=== PATIENT | male | born 1995 | race Caucasian/White ===

== ENCOUNTER 2023-08-18 19:35 | Emergency (ER) | payer BC, SELFPAY ==
[2023-08-18 19:36] VITALS: BP 116/82
--- NOTE | 2023-08-18 20:37 | ED.GENMED ---
History of Present Illness
<Gloria Banks PA-C - Last Filed: 08/19/23 00:23>
General
Chief Complaint: Flank Pain
Source: patient
Exam Limitations: none
Time Seen by Provider: 08/18/23 19:55
Nursing documentation reviewed up to this point in time: agreed with
Travel History
Have you had any contact with someone who has COVID-19?: No
Do you have any symptoms of coronavirus? Fever > 100 degrees, chills, cough, shortness of breath, sore throat, loss of taste or smell, muscle aches, or headache?: No
History of Present Illness
History of Present Illness:
Patient is a 28-year-old male with history hypertension, hyperlipidemia presenting for evaluation of acute onset left flank pain. Symptoms started acutely around 2 PM when he woke up from sleep. He describes pain as a sharp pain in his left flank
with some radiation around to his left side. He states pain is worse with movement and taking a deep breath, as well. He denies any radiation into his abdomen or down his leg.. Patient denies any testicular pain. Patient does endorse the mild
subjective fever and bodyaches. Patient denies any associated urinary symptoms, nausea, or vomiting. Patient denies any associated cough or chest pain. No recent travel or recent surgeries. Patient denies any numbness or tingling to his lower
extremities. Patient denies any bowel or bladder incontinence.
Patient states that he did have a flu infection about 1.5 weeks ago which caused shingles outbreak right mid to upper back.
Patient denies any known inciting injury.
Past History
<Gloria Banks PA-C - Last Filed: 08/19/23 00:23>
Past History
ED Past Medical History: HTN
ED Past Surgical History: None
Social History
Tobacco: Non-smoker
Alcohol: None
Drug: None
Review of Systems
<Gloria Banks PA-C - Last Filed: 08/19/23 00:23>
Review of Systems
Allergies reviewed?: Yes
All Other Systems: ROS reviewed and negative except as documented in HPI and ROS
Phy Exam
<Gloria Banks PA-C - Last Filed: 08/19/23 00:23>
Physical Exam
Physical Exam:
Vitals: Patient's vital signs are stable. Afebrile
General: Patient is well appearing, mild distress due to pain.
Skin: Warm and dry. Healing crusted linear vesicular rash on right upper back
Head: Normocephalic, atraumatic
Eyes: Sclera nonicteric. EOMs intact. No nystagmus.
Throat: Protecting airway. Uvula midline
Neck: Normal ROM, no cervical spine tenderness, no meningismus. Trachea midline
Cardiac: Regular rate and rhythm, no murmurs.
Pulm: Normal respiratory effort, no wheezes, rales, rhonchi heard on exam.
Abdomen: Abdomen soft. Mild diffuse abdominal tenderness without rebound tenderness or guarding. No CVA tenderness
Back: Mild tenderness palpation of left lateral ribs without crepitus or obvious deformity. No midline spinal tenderness. No obvious bruising, redness, rashes
Extremities: No evidence of cyanosis or edema. Good distal pulses
Neuro: AAOx3. CN II-XII intact. No focal neurologic deficits. Strength 5 out of 5 in upper and lower extremities. Sensation fully intact
Psychiatric: Normal affect.
Scores
<Gloria Banks PA-C - Last Filed: 08/19/23 00:23>
PERC Rule Criteria
Age <50 years: Yes
HR <100 bpm: Yes
Room air oxygen sat >94%: Yes
History of DVT or PE: No
Recent trauma or surgery: No
Hemoptysis: No
Exogenous estrogen: No
Clinical signs suggestive of DVT: No
: No
Considered low risk for PE: Yes
PERC Score: 0
PE can be excluded by PERC: Yes
Course
<Gloria Banks PA-C - Last Filed: 08/19/23 00:23>
Orders/Labs/Results
Orders:
Orders
08/18/23 20:23
0.9% Sodium Chloride 1000 ml [Nss] 1,000 ml IV BOLUS
Ketorolac [Toradol] 15 mg IV NOW STA
08/18/23 20:24
CT Abd/pel Without Iv Or Oral Urgent
Comment:
Reason For Exam: Left flank pain
08/18/23 20:56
Complete Blood Count/With Diff Urgent
Comprehensive Metabolic Panel Urgent
08/18/23 21:06
Urinalysis Reflex To Culture Urgent
Date Specimen was Collected: 08/18/23
Time Specimen was Collected: 20:57
08/18/23 21:40
CR Chest - 2 Views Urgent
Comment:
Reason For Exam: left flank pain, recent influenza
08/18/23 23:02
D-Dimer Urgent
Abnormal Lab Results
08/18/23
20:56
WBC 18.6 H 10^3/uL
(4.8-10.8)
Abs Immat Gran (auto) 0.1 H 10^3/uL
(0-0.05)
Absolute Neuts (auto) 15.3 H 10^3/uL
(1.4-6.5)
Absolute Monos (auto) 1.3 H 10^3/uL
(0.1-0.6)
Neutrophils % 82.3 H %
(42.2-75.2)
Lymphocytes % 9.5 L %
(20.5-51.1)
08/18/23 20:56
08/18/23 20:56
Vital Signs
Initial and Last Documented VS:
Initial Vital Signs
Temp Pulse Resp BP Pulse Ox
99.1 F 100 18 116/82 99
08/18/23 19:36 08/18/23 19:36 08/18/23 19:36 08/18/23 19:36 08/18/23 19:36
Last Documented Vital Signs
Temp Pulse Resp BP Pulse Ox
98.4 F 82 14 116/77 98
08/19/23 00:00 08/19/23 00:00 08/19/23 00:00 08/19/23 00:00 08/19/23 00:00
<Qamar Hayes DO - Last Filed: 08/18/23 23:07>
Orders/Labs/Results
Orders:
Orders
08/18/23 20:23
0.9% Sodium Chloride 1000 ml [Nss] 1,000 ml IV BOLUS
Ketorolac [Toradol] 15 mg IV NOW STA
08/18/23 20:24
CT Abd/pel Without Iv Or Oral Urgent
Comment:
Reason For Exam: Left flank pain
08/18/23 20:56
Complete Blood Count/With Diff Urgent
Comprehensive Metabolic Panel Urgent
08/18/23 21:06
Urinalysis Reflex To Culture Urgent
Date Specimen was Collected: 08/18/23
Time Specimen was Collected: 20:57
08/18/23 21:40
CR Chest - 2 Views Urgent
Comment:
Reason For Exam: left flank pain, recent influenza
08/18/23 23:02
D-Dimer Urgent
Abnormal Lab Results
08/18/23
20:56
WBC 18.6 H 10^3/uL
(4.8-10.8)
Abs Immat Gran (auto) 0.1 H 10^3/uL
(0-0.05)
Absolute Neuts (auto) 15.3 H 10^3/uL
(1.4-6.5)
Absolute Monos (auto) 1.3 H 10^3/uL
(0.1-0.6)
Neutrophils % 82.3 H %
(42.2-75.2)
Lymphocytes % 9.5 L %
(20.5-51.1)
08/18/23 20:56
08/18/23 20:56
Vital Signs
Initial and Last Documented VS:
Initial Vital Signs
Temp Pulse Resp BP Pulse Ox
99.1 F 100 18 116/82 99
08/18/23 19:36 08/18/23 19:36 08/18/23 19:36 08/18/23 19:36 08/18/23 19:36
Last Documented Vital Signs
Temp Pulse Resp BP Pulse Ox
98.4 F 82 14 116/77 98
08/19/23 00:00 08/19/23 00:00 08/19/23 00:00 08/19/23 00:00 08/19/23 00:00
<Gloria Banks PA-C - Last Filed: 08/19/23 00:23>
MDM/Problems Addressed
Differential Diagnosis Includes:
Not limited to: Kidney stone, UTI, pyelonephritis, zoster, muscle strain/spasm, constipation, bowel obstruction
MDM/Problems Addressed:
28-year-old male presenting with acute onset left flank pain when waking this morning. No known inciting injury. No associated fever, chills, urinary symptoms. Patient recently recovering from influenza. Denies any cough or sputum production.
Patient worried about possible kidney stone. Vital signs stable. Exam as above. He is in mild distress due to pain, but nontoxic-appearing. Mild reproducible tenderness on left lateral ribs without any overlying bruising or obvious bony
deformity. Abdomen with mild diffuse tenderness with no rebound tenderness or guarding. Will check basic labs, urine, noncontrast CT abdomen/pelvis. Toradol for pain. IV fluids. Will closely monitor and reassess.
Into reassess patient at bedside. Patient does appear much more comfortable responded well to Toradol. He states the pain has improved.
CT scan shows no acute abnormality. No signs of bowel obstruction or kidney stone. Labs reviewed. He does have a leukocytosis of 18.6. Otherwise no clinically significant abnormalities. Urine shows no signs of infection or blood
Into discussed findings with patient. He does now recall that he was treated with a course of steroids for influenza infection for 4 to 5 days, recently finishing 3 days ago. This is likely contributing to leukocytosis. Given recent
influenza�will check chest x-ray and D-dimer. Patient remains much more comfortable following Toradol. Anticipate discharge if chest x-ray/D-dimer negative.
Initial read of chest x-ray by myself and attending physician showed no acute abnormalities. No evidence of a lobar pneumonia. D-dimer is negative. Patient has responded very well to Toradol and appears much more comfortable. He is resting
comfortably and asleep on repeat examination. Workup here has been essentially negative. Suspect flank pain is likely muscular in origin at this point. Leukocytosis likely attributable to recent course of steroids. Patient stable for discharge
with close return precautions and primary care follow-up. Recommend NSAIDs, heat. Patient comfortable with plan. All questions answered
Chronic conditions affecting care:
N/A
Acute Exacerbation and/or Progression of Chronic Illness:
N/A
<Gloria Banks PA-C - Last Filed: 08/19/23 00:23>
*Radiology
Radiology exam reviewed: preliminary read by ED provider and radiology read reviewed
*Pulse Oximetry
Patient hypoxic: no
*EKG
Interpreted by ED Provider?: NA
*Production Administrative Assistant Interpretation
Rate: Production Administrative Assistant- N/A
*Critical Care Note
Total Time (30-74mins, 75-104mins- exclusive of procedures): Not Applicable
ED Attending Note
<Gloria Banks PA-C - Last Filed: 08/19/23 00:23>
-
Portions of this chart may have been created with voice recognition software.� Occasional wrong word or��sound alike� substitutions may have occurred due to the inherent limitations of voice recognition software.
<Qamar Hayes DO - Last Filed: 08/18/23 23:07>
ED Attending Note
Patient seen and examined by attending physician: Yes
I performed the substantive portion of visit, reviewed & personally made and approve the management plan that is documented in note by myself or CLAUDIO.: Yes
ED Attending Note:
Patient is a 28-year-old male who presents to the emergency department after waking with left flank pain. The pain persisted and he was concerned about possible kidney stone. Patient was treated with 5 days worth of steroids for influenza. The
steroids finished 3 to 4 days ago. Patient denies fever or chills. Patient states it does hurt to take a deep breath and the cough but denies shortness of breath. Patient denies any nausea or vomiting. Patient denies any recent injuries.
Patient does play ice hockey. Patient denies any diarrhea. Patient denies any urgency, frequency, dysuria hematuria. On physical exam patient appears comfortable. Heart is regular lungs are clear. Patient does have some reproducible tenderness
of the lower left ribs laterally without crepitus or deformity. Patient has no CVA tenderness. Abdomen is mildly tender in the left upper quadrant without guarding or rebound. Patient has no organomegaly. Urine is clear. Patient does have an
18,000 white count which may be secondary to the steroids. Patient does have a family history of clotting in both his maternal grandparents on Coumadin for clots. Unsure if this is venous or arterial. Patient denies any history of PE or DVT.
Patient's chest x-ray looks clear and at this time awaiting D-dimer. I suspect the patient will be able to go home if the D-dimer and/or CTA are negative. Patient has responded well to Toradol.
Discharge Plan
Departure
Patient Disposition: Home (Routine Discharge)
Date of Disposition: 08/18/23
Time of Disposition: 23:41
Patient with high blood pressure during this ER visit?: No
Condition: Good
Covid-19: Not Applicable
Discharge Problem:
Acute left flank pain
Instructions: Flank Pain (DC), Back Muscle Strain (DC)
Prescriptions:
New
ketorolac 10 mg tablet
10 mg PO Q6H PRN (Reason: Pain) Qty: 10 0RF
Rx Instructions:
maximum total duration of 5 days from all oral, intranasal, or parenteral formulations
No Action
amoxicillin 875 MG tablet
875 mg PO BID 10 Days Qty: 20 0RF
Referrals:
Carlos Dominguez MD [Family Provider] - Follow up in 5-7 days
Activity Restrictions/Additional Instructions:
RETURN TO THE EMERGENCY DEPARTMENT WITH ANY FEVERS, CHILLS, WORSENING IN PAIN, SEVERE ABDOMINAL PAIN, INTRACTABLE NAUSEA/VOMITING, CHEST PAIN, SHORTNESS OF BREATH, NUMBNESS/TINGLING/WEAKNESS IN LOWER EXTREMITIES, OR ANY OTHER CONCERNS
-As discussed we are not sure the exact cause of your flank pain today. Your CT scan showed no evidence of a kidney stone. It is possible that it is a muscular strain.
-Prescription for ketorolac and sent to your pharmacy. You can take this every 6 hours as needed for pain. For mild discomfort you can also take ibuprofen/Tylenol. You should not take both ibuprofen and Toradol at the same time. You can apply a
heating pad to the affected area. It is important stay well-hydrated.
-Follow-up with your primary care provider in a few days to ensure that symptoms are improving. Monitor your symptoms closely and return to the emergency department any new symptoms or acute worsening
Interventions
Interventions:
*Risk Screen - Suicide Last Done: 08/18/23 20:47
*General Assessment Last Done: 08/18/23 19:36
*Neglect/Abuse Screening Last Done: 08/18/23 20:47
ED- Fall Risk Assessment Last Done: 08/18/23 20:47
*ED COVID-19 Vaccine History Last Done: 08/18/23 19:36
*Nursing Disposition Last Done: 08/19/23 00:07
RD-Qxvpju-Zpxsadqoav Assessment Last Done: 08/18/23 20:47
ED-Male Genitourinary Assessment Last Done: 08/18/23 20:47
Discharge Date and Time
Discharge Date/Time: 08/19/23 00:07
Print Language: CITIZEN OF [place]
[2023-08-18 20:47] VITALS: BMI 27.0
[2023-08-18] MEDS: TORADOL 15 MG IV (21:02)
[2023-08-18] MEDS: NSS 1000 IV (21:04)
[2023-08-18 21:05] LABS: % Basophils 0.2 % (0-2); % Eosinophils 0.5 % (0-6); % Immature Granulocytes 0.5 % (0-0.5); % Lymphocytes 9.5 % (20.5-51.1); % Neutrophils 82.3 % (42.2-75.2); Absolute Eosinophils 0.1 10^3/uL (0-0.7); Absolute Immature Granulocytes 0.1 10^3/uL (0-0.05); Absolute Lymphocytes 1.8 10^3/uL (1.2-3.4); Absolute Monocytes 1.3 10^3/uL (0.1-0.6); Absolute Neutrophils 15.3 10^3/uL (1.4-6.5); Hematocrit 41.1 % (39.0-52.0); Hemoglobin 14.7 g/dL (13.0-18.0); Mean Corp Hgb Conc. 35.8 g/dL (33.0-37.0); Mean Corpuscular Hgb 28.6 pg (27.0-31.0); Mean Platelet Volume 9.2 fL (7.4-10.4); Nucleated Red Blood Cells % 0 % (-); Platelet Count 341 10^3/uL (130-400); Red Blood Cell Count 5.14 10^6/uL (4.70-6.10); Red Cell Dist. Width 12.4 % (11.5-14.5); White Blood Cell Count 18.6 10^3/uL (4.8-10.8)
[2023-08-18 21:17] LABS: Urine Albumin Negative (Neg - Trace); Urine Bilirubin Negative (Negative); Urine Character Clear (Clear); Urine Color Yellow; Urine Glucose Negative (Negative); Urine Ketone Negative (Negative); Urine Leukocyte Negative (Negative); Urine Nitrite Negative (Negative); Urine Occult Blood Negative (Negative); Urine Specific Gravity 1.005 (<1.030); Urine Urobilinogen Negative (Neg - 1+)
[2023-08-18 21:22] LABS: ALT (SGPT) 48 U/L (0-50); AST (SGOT) 21 U/L (17-59); Albumin 4.6 g/dl (3.5-5.0); Alkaline Phosphatase 62 U/L (38-126); Blood Urea Nitrogen 14 mg/dl (9-20); Carbon Dioxide 25 mmol/L (22-30); Chloride 103 mmol/L (98-107); Estimated Creatinine Clearance > 125 ml/min; Glucose 96 mg/dl (70-99); Potassium 4.3 mmol/L (3.5-5.1); Sodium 137 mmol/L (135-145); Total Bilirubin 0.7 mg/dl (0.2-1.3); Total Protein 7.6 g/dl (6.3-8.2); eGFR > 60.00
[2023-08-18 22:00] VITALS: BP 112/78
[2023-08-18 23:00] VITALS: BP 117/78
[2023-08-18 23:34] LABS: D-Dimer < 0.27 ug/mlFEU (0.00-0.50)
[2023-08-19] VITALS: BP 116/77
== END 2023-08-19 00:07 | disposition home or self-care (01) ==
LOC: EMR 19:35
PROVIDERS: Physician Assistant; EMERGENCY PHYSICIAN Emergency Medicine; FAMILY PHYSICIAN Internal Medicine
DX: R10.9 Unspecified abdominal pain (principal); I10 Essential (primary) hypertension; E78.00 Pure hypercholesterolemia, unspecified
CPT/HCPCS: 99284; 96374; 71046; 74176; 80053; 81003; 85025; 85379